=== PATIENT | male | born 1985 | race Caucasian/White ===

== ENCOUNTER → 2018-08-09 | Outpatient (CLI) | payer BC ==
--- NOTE | 2018-08-09 16:42 | RADIOLOGY IMAGING REPORT ---
FACILITY: [facility] PATIENT NAME: Renan Wen : 1985 MR: [id number] V: [id number] EXAM DATE: ORDERING PHYSICIAN: TERESA FLEMING TECHNOLOGIST: Location: [facility] [place] Patient: Renan Wen : 1985 Visit/Account:[id number] Date of Sevice: 08/09/2018 ` US SOFT TISSUE NON-SPECIFIC Indication: Palpable lump left axilla Comparison: None. Findings: Images of both right and left axilla were obtained. Normal subcutaneous tissue is seen. The re is a benign lymph node in the left axilla. IMPRESSION: Normal images of the right and left axilla. There is no worrisome or suspicious mass iden tified. Report Dictated By: Jovan Lyons at 08/09/2018 4:28 PM Report E-Signed By: Jovan Lyons at 08/09/2018 4:37 PM WSN:[id number]
== END ==
LOC: US 14:59
PROVIDERS: ATTEND Nurse Practitioner Family
DX: R22.2 Localized swelling, mass and lump, trunk (principal)
CPT/HCPCS: 76999